=== PATIENT | male | born 1975 | race Caucasian/White ===

== ENCOUNTER 2017-09-14 06:32 | Observation (INO) | payer OTHER, SELFPAY ==
[2017-09-14] VITALS (12 sets, daily range): BP systolic 127–178; BP diastolic 70–102; PULSE 68–96; RESP 13–16; TEMP 36.4–36.6; O2SAT 96–98; BMI 36.8; BMI 36.4
--- NOTE | 2017-09-14 06:39 | EKG12_ITS ---
Test Reason : CHEST PAIN Blood Pressure : / mmHG Vent. Rate : 065 BPM Atrial Rate : 065 BPM P-R Int : 148 ms QRS Dur : 088 ms QT Int : 376 ms P-R-T Axes : 031 001 014 degrees QTc Int : 391 ms Normal sinus rhythm with sinus arrhythmia Normal ECG Confirmed by SHARRI TONY ([id number]), design editor THANH ORTIZ ([id number] on 09/18/2017 4:07:07 PM Referred By: JAYASHREE Confirmed By:SHARRI OTNY
--- NOTE | 2017-09-14 06:39 | RAD_ITS ---
STUDY: X-RAY CHEST REASON FOR EXAM: Male, 42 years old. Left-sided chest pain. TECHNIQUE: Single AP portable view of the chest. COMPARISON: August 22, 2013. FINDINGS: Cardiac monitoring leads are present. The lungs are clear and expanded. There is no demonstrated pleural abnormality. Normal size heart. Normal mediastinum and juaquin. There is prominence of the pulmonary hilar arteries without peripheral pulmonary vascular congestion. Normal visualized aortic arch and descending thoracic aorta. Normal visualized thoracic spine. Normal visualized ribs, clavicles, and shoulders. There is no demonstrated abnormality of the visualized soft tissue structures of the upper abdomen. RAD/Chest 1 View (Portable) IMPRESSION: No radiographic evidence of acute cardiopulmonary disease. Electronically Signed: Jolanta Mac MD at 7:22 EDT , Service support ,
--- NOTE | 2017-09-14 06:42 | ED.DCSUM_ITS ---
- ER Visit Summary Date of Service: 09/14/17 Chief Complaint: Chest pain History of Present Illness: The patient is a 42 M who presents with chest pain. He has had intermittent chest pains for the past 1 week. He describes a tightness in the left side of his chest and parasternal area. It does not radiate. Is worse with bending over. When he gets these pains in gets short of breath. At times he has felt lightheaded and near syncopal. It got worse at 1 AM today. He has stress test many years ago but nothing recently. He denies hypertension, diabetes or high cholesterol. He is a non-smoker. Physical Examination: Vital signs reviewed. HEENT exam unremarkable. Heart is regular rate and rhythm without murmurs. Lungs are clear to auscultation. Abdomen is soft and nontender. Extremities reveal no edema. Peripheral pulses are equal. Skin exam normal. Neurologic exam normal. Test Results: [] Emergency Department Course and Treatment: [] Treatment Plan: [] Disposition: [] Impression: [] This note was generated with [employer] dictation software. It may contain incorrect words, spelling, and punctuation that were not noted in review of the chart prior to signing ED Disposition - Plan for ED Patient: Chief Complaint: Chest Pain Referrals: NOT,DEFINED [Primary Care Provider] -
[2017-09-14] MEDS: Aspirin 81 MG TAB.CHEW 324 MG PO (06:47)
[2017-09-14 06:52] LABS: Absolute Lymphocyte Count 2.93 X10^3/ul (0.83-4.51); Absolute Neutrophil Count 3.5 X10^3/uL (2.0-7.7); Basophil# 0.07 X10^3/uL; Basophil% 0.9 % (0-1); Eosinophils% 2.6 % (0-5); Hematocrit 45.8 % (40-54); Hemoglobin 16.5 g/dl (13.0-16.5); Lymphocyte # 2.93 X10^3/ul (4.0); Lymphocyte % 38.5 % (19-41); Mean Corpuscular Hgb 30.8 pg (27.0-32.0); Mean Corpuscular Volume 85.6 fL (80-94); Mean Platelet Vol. 8.5 fl (6.2-12.0); Monocyte# 0.84 X10^3/uL; Neutrophil # 3.49 X10^3/uL (2.7-7.7); Neutrophil % 45.9 % (47-70); Platelet Count 276 K/mm3 (150-450); RBC Distribution Width CV 13.7 % (11.6-14.6); RBC Distribution Width SD 42.4 fl (35.1-43.9); Red Blood Count 5.35 M/mm3 (4.6-6.2); White Blood Count 7.6 K/mm3 (4.4-11.0)
[2017-09-14 06:56] LABS: POSITIVE COUNT NO; POSITIVE DIFFERENTIAL NO; POSITIVE MORPHOLOGY NO
[2017-09-14 07:04] LABS: Anion Gap 6 (5-15); BUN 20 mg/dL (7-18); BUN/Creat Ratio 13.6 RATIO (10-20); Calcium,Total 8.5 mg/dL (8.5-10.1); Chloride 106 mmol/L (98-107); Creatinine, Serum 1.47 mg/dL (0.70-1.30); EST Glomerular Filtration Rate 55 mL/min (>60); Est Glom Filt Rate - Afr Amer 67 mL/min (>60); Estimated Creatinine Clearance 62.69 ml/min; Glucose 86 mg/dL (74-106); Potassium 3.7 mmol/L (3.5-5.1); Sodium Level 140 mmol/L (136-145)
--- NOTE | 2017-09-14 07:33 | ED.VISSUMM ---
- ER Visit Summary Date of Service: 09/14/17 Chief Complaint: [Addendum to initial dictation by Dr. Siegel] History of Present Illness: The patient is a 42 M [] presented with chest pain. Patient care turned over to me at 7 AM awaiting lab results and final disposition. It was felt by Dr. Siegel that patient would require admission to further evaluate the etiology of his chest pain. Patient continues to complain of some tightness in his left chest and I did order a nitro series for the patient. Case will be discussed with hospitalist evaluate patient for admission. Physical Examination: [] Test Results: [CBC with differential was normal. Chemistries were normal. Troponin was less than 0.02. BUN was 20 and creatinine was 1.47. Chest x-ray showed nothing acute.] Emergency Department Course and Treatment: [] Treatment Plan: [Admit] Disposition: [Admit] Impression: [Chest pain-rule out acute coronary syndrome] This note was generated with [employer] dictation software. It may contain incorrect words, spelling, and punctuation that were not noted in review of the chart prior to signing ED Disposition - Plan for ED Patient: Chief Complaint: Chest Pain Referrals: NOT,DEFINED [NON-STAFF] -
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
[2017-09-14] MEDS: Nitroglycerin 0.1 MG Patch TRANSDERM. (08:04)
[2017-09-14 08:28] LABS: Magnesium 2.3 mg/dL (1.6-2.6)
--- NOTE | 2017-09-14 09:30 | NURSING ---
patient off unit to stress testing at this time
--- NOTE | 2017-09-14 12:36 | STRESSREP ---
Stress Test Report Date: 06/09/2017 Procedure: Exercise tolerance test/imaging study Indications: Chest pain Consent: Per the patient Procedure: The patient exercised on a Jose protocol for 9 minutes completing Stage III achieving a peak heart rate of 179 bpm (101 % predicted maximal heart rate) with a peak blood pressure 158/60 mmHg and a peak MET capacity of 10 METs. The baseline ECG demonstrated normal sinus rhythm. The peak exercise ECG demonstrated no obvious ECG changes. There was a rare PVC, isolated ventricular couplet, and isolated ventricular triplet, during exercise and a rare PAC/PVC during recovery. The functional capacity was considered good. There was no complaint of chest discomfort during exercise or recovery. The examination was discontinued secondary to dyspnea. Impression: 1. Technically adequate (percent predicted maximal heart rate greater than 85%) exercise tolerance test 2. Peak exercise ECG with no obvious ECG changes 3. There was a rare PVC, isolated ventricular couplet, isolated ventricular triplet, during exercise and a rare PAC/PVC during recovery. 4. Nuclear images pending Myocardial perfusion imaging study: Technique: The patient was injected with 14.3 mCi of technetium 99m Cardiolite and subsequently rest SPECT Cardiolite nuclear imaging was obtained in the horizontal long, vertical long, and short axis views. The patient exercised on a Jose protocol for 9 minutes completing Stage III achieving a peak heart rate of 179 bpm (101 % predicted maximal heart rate) with a peak blood pressure 158/60 mmHg and a peak MET capacity of METs. The patient was injected with 44.6 mCi of technetium 99m Cardiolite and subsequently stress SPECT Cardiolite nuclear imaging was obtained in the horizontal long, vertical long, and short axis views. A gated Cardiolite study at peak stress was obtained. Interpretation: Rest and stress SPECT Cardiolite nuclear imaging status post realignment, normalization, and attenuation correction, demonstrates the appearance of relative uniform tracer uptake and myocardial perfusion appearing within normal limits. There is end systolic thickening and brightening. The gated Cardiolite study demonstrates myocardial thickening and inward wall motion. The reported LVEF is 80 %. Impression: 1. Rest and stress SPECT Cardiolite nuclear imaging demonstrate relative uniform tracer uptake and myocardial perfusion appearing within normal limits. 2. The gated Cardiolite study reports an LVEF of 80 %. This note was generated with [employer] software. It may contain incorrect words, spelling, and punctuation that were not noted in checking the note before signing.
--- NOTE | 2017-09-14 12:43 | STRESSREP_ITS ---
Stress Test Report Date: 06/09/2017 Procedure: Exercise tolerance test/imaging study Indications: Chest pain Consent: Per the patient Procedure: The patient exercised on a Jose protocol for 9 minutes completing Stage III achieving a peak heart rate of 179 bpm (101 % predicted maximal heart rate) with a peak blood pressure 158/60 mmHg and a peak MET capacity of 10 METs. The baseline ECG demonstrated normal sinus rhythm. The peak exercise ECG demonstrated no obvious ECG changes. There was a rare PVC, isolated ventricular couplet, and isolated ventricular triplet, during exercise and a rare PAC/PVC during recovery. The functional capacity was considered good. There was no complaint of chest discomfort during exercise or recovery. The examination was discontinued secondary to dyspnea. Impression: 1. Technically adequate (percent predicted maximal heart rate greater than 85% ) exercise tolerance test 2. Peak exercise ECG with no obvious ECG changes 3. There was a rare PVC, isolated ventricular couplet, isolated ventricular triplet, during exercise and a rare PAC/PVC during recovery. 4. Nuclear images pending Myocardial perfusion imaging study: Technique: The patient was injected with 14.3 mCi of technetium 99m Cardiolite and subsequently rest SPECT Cardiolite nuclear imaging was obtained in the horizontal long, vertical long, and short axis views. The patient exercised on a Jose protocol for 9 minutes completing Stage III achieving a peak heart rate of 179 bpm (101 % predicted maximal heart rate) with a peak blood pressure 158/ 60 mmHg and a peak MET capacity of METs. The patient was injected with 44.6 mCi of technetium 99m Cardiolite and subsequently stress SPECT Cardiolite nuclear imaging was obtained in the horizontal long, vertical long, and short axis views. A gated Cardiolite study at peak stress was obtained. Interpretation: Rest and stress SPECT Cardiolite nuclear imaging status post realignment, normalization, and attenuation correction, demonstrates the appearance of relative uniform tracer uptake and myocardial perfusion appearing within normal limits. There is end systolic thickening and brightening. The gated Cardiolite study demonstrates myocardial thickening and inward wall motion. The reported LVEF is 80 %. Impression: 1. Rest and stress SPECT Cardiolite nuclear imaging demonstrate relative uniform tracer uptake and myocardial perfusion appearing within normal limits. 2. The gated Cardiolite study reports an LVEF of 80 %. This note was generated with [employer] software. It may contain incorrect words, spelling, and punctuation that were not noted in checking the note before signing.
--- NOTE | 2017-09-14 12:48 | PCM.DC ---
- Discharge Diagnoses Current Active Problems: Current Active and Chronic Problems Chest pain (Acute) Reason(s) for Visit for Discharge Instructions: Chest pain. You will use the following diet at home:: Regular Your food should be the consistency of: Regular Your liquids should be the consistency of: Regular/Thin Discharge Activity: Return to Normal Activity Additional Instructions: Continue to exercise and follow a heart healthy diet. Allergies/Adverse Reactions: Allergies No Known Allergies Allergy (Verified 09/14/17 06:32) Medications to take at Discharge NK [NK] 09/14/17 Primary Care Physician: NOT,DEFINED [NON-STAFF] - Please follow up with your Primary Care Physician in: within 2 weeks Proposed Discharge Date: 09/14/17
--- NOTE | 2017-09-14 12:51 | PCM.DC.SUM ---
Discharge Date and Diagnosis Date of Admission: 09/14/17 Date of Discharge: 09/14/17 - Primary Discharge Diagnosis Active and Suspected Problems Chest pain (Acute) Hospital Course and Treatment Imaging Results: 09/14/17 05:55 Nuclear Stress Test - Chemical [NM] AM (NON MEDS) 09/15/17 05:55 Nuclear Stress Test - Chemical [NM] AM (NON MEDS) Clinical Impression(s) from Imaging Studies Chest X-Ray 09/14/17 06:39 IMPRESSION: No radiographic evidence of acute cardiopulmonary disease. Electronically Signed: Jolanta Mac MD at 7:22 EDT , Service support , None Operations: None Procedures: None Summary of Care Provided: 42 year old M with no significant past medical history who comes in with complaints of chest pain ongoing for about a week. Pain is left-sided, sharp in origin, associated with some light-headedness. It wWas associated with some palpitations but no nausea and some diaphoresis. Vitals were stable in the ED except for an initial elevated blood pressure at that resolved on further monitoring. Patient's initial troponins were negative. He underwent further stress test and was negative. Vitals continue to be negative and patient was subsequently discharged to follow-up with his primary care doctor within 2 weeks. Discharge Diet: No Restrictions Discharge Activity: Return to Normal Activity Home Medications: Medications to take at Discharge NK [NK] 09/14/17 Primary Care Physician: NOT,DEFINED [NON-STAFF] - Please follow up with your Primary Care Physician in: within 2 weeks Disposition: Home Minutes spent on discharge:: 25 Patient Condition:: Stable Medical Necessity - Tobacco Use Smoking Status: Never smoker Meaningful Use Info Meaningful Use Diagnoses (Choose all that apply): None applicable Code Visit OBSV E&M: 34473 Observ/hosp same date L3
== END 2017-09-14 12:49 | disposition home or self-care (01) ==
LOC: ED 06:59 → PCU 07:53
PROVIDERS: Admitting Provider Internal Medicine; Emergency Provider Emergency Medicine; Visit Provider Internal Medicine
DX: R07.89 Other chest pain (principal); R06.02 Shortness of breath; R42 Dizziness and giddiness
CPT/HCPCS: 71045; 78452; 80048; 83735; 84484; 85025; 93005; 93017; 99283; A9500; A4216

== ENCOUNTER → 2018-06-16 16:22 | Outpatient (CLI) | payer OTHER, SELFPAY ==
[2018-06-16 11:42] VITALS: BMI 37.5
== END ==
PROVIDERS: Visit Provider Nurse Practitioner Family
DX: J02.9 Acute pharyngitis, unspecified (principal)
CPT/HCPCS: 87070

== ENCOUNTER 2019-01-09 20:56 | Emergency (ER) | payer OTHER, SELFPAY ==
[2018-07-29 13:09] VITALS: BMI 37.5
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
[2019-01-09 21:35] LABS: Absolute Lymphocyte Count 2.27 X10^3/uL (0.83-4.51); Absolute Neutrophil Count 3.9 X10^3/uL (2.0-7.7); Basophil# 0.05 X10^3/uL; Basophil% 0.7 % (0-1); Eosinophil# 0.21 X10^3/uL; Eosinophils% 2.9 % (0-5); Hematocrit 42.9 % (40-54); Hemoglobin 15.2 g/dL (13.0-16.5); Lymphocyte # 2.27 X10^3/ul (4.0); Lymphocyte % 31.2 % (19-41); Mean Corp Hgb Conc 35.4 g/dL (32-36); Mean Corpuscular Hgb 30.8 pg (27.0-32.0); Mean Platelet Vol. 8.5 fl (6.2-12.0); Monocyte# 0.69 X10^3/uL; Monocyte% 9.5 % (0-10); NRBC Flagged by Analyzer 0 % (0-5); Neutrophil # 3.94 X10^3/uL (2.7-7.7); Neutrophil % 54.2 % (47-70); Platelet Count 255 K/mm3 (150-450); RBC Distribution Width CV 13.2 % (11.6-14.6); RBC Distribution Width SD 41.1 fl (35.1-43.9); Red Blood Count 4.93 M/mm3 (4.6-6.2); White Blood Count 7.3 K/mm3 (4.4-11.0)
[2019-01-09 21:48] LABS: Anion Gap 6 (5-15); BUN 19 mg/dL (7-18); BUN/Creat Ratio 14.3 RATIO (10-20); Calcium,Total 8.5 mg/dL (8.5-10.1); Chloride 110 mmol/L (98-107); Creatinine, Serum 1.33 mg/dL (0.70-1.30); EST Glomerular Filtration Rate 62 mL/min (>60); Est Glom Filt Rate - Afr Amer 75 mL/min (>60); Glucose 87 mg/dL (74-106); Potassium 3.6 mmol/L (3.5-5.1); Sodium Level 142 mmol/L (136-145)
[2019-01-09 21:48] LABS: Amphetamine Urine VISTA NEGATIVE (<1000 ng/mL); Barbiturate Urine VISTA NEGATIVE (< 200 ng/mL); Benzodiazepine Urine VISTA NEGATIVE (< 200 ng/mL); Cocaine Urine VISTA NEGATIVE (< 300 ng/mL); Ecstacy Urine VISTA NEGATIVE (< 500 ng/mL); Methadone Urine VISTA NEGATIVE (< 300 ng/mL); PCP Urine VISTA NEGATIVE (< 25 ng/mL); THC Urine VISTA NEGATIVE (< 50 ng/mL); Vista UDS pH Range 6
[2019-01-09 21:50] VITALS: BP 152/86; PULSE 76; PULSE 81; RESP 16; RESP 17; TEMP 36.8; O2SAT 100; O2SAT 98; BMI 37.2
--- NOTE | 2019-01-09 22:21 | ED.DEP ---
ED Disposition - Plan for ED Patient: Disposition: Home or Assisted Living Instructions: SKIN EXPOSURE, Chemical, Chemical Inhalation Referrals: Care Physician,No Primary [NON-STAFF] -
[2019-01-09 22:43] VITALS: BP 141/81; PULSE 71; RESP 16; O2SAT 99
== END 2019-01-09 22:44 | disposition home or self-care (01) ==
PROVIDERS: Emergency Provider Emergency Medicine; Family Provider Family Medicine; PCP Family Medicine
DX: Z77.098 Contact with and (suspected) exposure to other hazardous, chiefly nonmedicinal, chemicals (principal)
CPT/HCPCS: 80048; 80307; 85025; 99284; A4216

== ENCOUNTER 2019-12-25 20:42 | Emergency (ER) | payer OTHER, SELFPAY ==
[2019-11-11 13:34] VITALS: BMI 37.2
[2019-12-25 20:44] VITALS: BP 147/88; PULSE 79; RESP 18; TEMP 36.8; O2SAT 97; BMI 36.5
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
--- NOTE | 2019-12-25 23:03 | ED.DCSUM_ITS ---
History of Present Illness Chief Complaint: Lower Extremity Injury Informant: Patient Narrative: Patient is a 44-year-old previous healthy male who presents to the emergency department for right ankle pain. This started earlier today while he was at work. 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 He felt a burning sensation around the distal part of his Achilles tendon. Since running approximately 80 yards the pain has been getting more intense. He has not tried anything for this. He has not had this pain ever before. Denies twisting his ankle. No injury. He has been able to ambulate on it but has been taking very small steps due to the pain. No pain going up the leg into his calf. No history of blood clots. Very mild swelling on the medial aspect of the insertion site of Achilles tendon. He denies any systemic symptoms including any fever/chills. He has gotten mildly nauseous during the pain when he gets severe. He has twisted the ankle many times before in the past while playing basketball. Denies any loss of sensation in the foot. Past Medical History - Allergies and Home Meds Allergies/Adverse Reactions: Allergies No Known Allergies Allergy (Verified 12/25/19 20:48) Primary Care Physician: Natasha Wang MD [Primary Care Provider] - 3-5 Days if not improving Prior records reviewed: Yes Past Medical History: None Surgical History: total knee arthroplasty - left, - - wrist surgery Smoking Status: Never smoker - Family History Maternal Family History: Reports: No pertinent history Paternal Family History: Reports: No pertinent history Review of Systems All systems negative except as indicated General: Denies: Chills, Fever Eyes: Denies: Visual changes - bilaterally ENT: Denies: Rhinorrhea Cardiovascular: Denies: Chest pain Respiratory: Denies: Dyspnea, Cough Gastrointestinal: Reports: Nausea. Denies: Abdominal pain, Vomiting Musculoskeletal: Reports: Swelling, Extremity Pain. Denies: Myalgias, Neck pain, Back pain Skin: Denies: Rash, Wounds Neurological: Denies: Headache, Weakness, Parasthesia, Numbness Hematologic: Denies: Easy bruising, Easy bleeding Physical Exam Vital Signs/Narrative: Vital Signs Temp Pulse Resp BP Pulse Ox 12/25/19 20:44 98.2 F 79 18 147/88 H 97 Inital Vital Signs reviewed: Yes General: Well nourished Head: Normocephalic, Atraumatic Eyes: Perrl, EOMI ENT: Moist mucous membranes, No rhinorrhea Neck: Supple Cardiovascular: Regular rate Respiratory: No distress, Chest nontender. Negative for: Retractions Abdomen: Nondistended Back: Nontender Extremities: No edema, Tenderness - Patient has tenderness over the medial aspect of the Achilles tendon. Very mild swelling present. 2+ dorsal pedis pulse. Neurovascular intact. Has full range of motion of the ankle but with pain. Skin: Normal color, No rash Neurological: Alert, Oriented x3, Cranial nerves II-XII grossly intact, Normal Strength, Normal Sensation Psychological: Normal affect, Normal Mood Diagnostic/Tx/Re-eval - Medical Decision Making Patient presents to the emerge department for right ankle pain while running. He denies any specific injury. X-rays obtained which showed previous avulsion fractures of the lateral and medial malleolus. No acute fractures present. He could potentially have a partially torn Achilles tendon. He has good tone present currently. Put him in a walking boot and give crutches here as he is having a lot of pain with ambulating. He is to follow-up with his PCP. Warning signs and symptoms for which to return to the emergency department including significant swelling, developing any overlying skin changes including warmth, erythema or reviewed. Can treat his symptoms at home with Tylenol and ibuprofen. He is to use RICE as well. He understands and is agreeable with this plan. ED Disposition - Plan for ED Patient: Disposition: Home or Assisted Living Diagnosis: Ankle pain, right, Right ankle strain Instructions: ED Sprain Ankle Referrals: Natasha Wang, [Primary Care Provider] - 3-5 Days if not improving
[2019-12-25] MEDS: Ketorolac 30 MG/ML Syringe IM (23:21)
== END 2019-12-25 23:37 | disposition home or self-care (01) ==
PROVIDERS: Emergency Provider Emergency Medicine
DX: S93.401A Sprain of unspecified ligament of right ankle, initial encounter (principal); Y93.02 Activity, running; X50.9XXA Other and unspecified overexertion or strenuous movements or postures, initial encounter; Y92.89 Other specified places as the place of occurrence of the external cause; Y99.0 Civilian activity done for income or pay
CPT/HCPCS: 73610; 73630; 96372; 99284

== ENCOUNTER → 2019-12-27 07:38 | Outpatient (CLI) | payer OTHER, SELFPAY ==
[2019-12-26 11:52] VITALS: BMI 36.5
--- NOTE | 2019-12-27 07:45 | MRI_ITS ---
STUDY: MRI RIGHT ANKLE WITHOUT CONTRAST REASON FOR EXAM: Male, 44 years old. RT ANKLE ACHILLES TEAR -- injured rt ankle 12/25/19, pain/ lump posterior ankle TECHNIQUE: Standardized fat and water weighted pulse sequences were obtained in all 3 orthogonal planes. COMPARISON: None. FINDINGS: Mild subcutaneous edema is seen on the lateral side of the lower leg and around the ankle. No visualized marrow edema or osteochondral defect. Mild subchondral cystic changes are present at the undersurface of the medial malleolus. Normal lateral malleolus. A small joint effusion is present. Normal posterior tibialis tendon. Normal flexor digitorum longus tendon. Normal flexor hallucis longus tendon. Normal peroneus longus and brevis tendons. Normal tibialis anterior tendon. Normal extensor hallucis longus tendon. Normal extensor digitorum longus tendons. Moderate bulbous thickening of the mid one third aspect of the Achilles tendon is present with intrasubstance 1.5 cm split tear in the central to posterior fibers. The peripheral fibers of the Achilles tendon are normal. Normal Achilles teno-osseous insertion. Normal plantar fascia. Normal plantar calcaneal tubercles. Normal intrinsic muscles of the rearfoot. Normal distal tibiofibular syndesmotic ligamentous complex. The anterior talofibular ligament is completely torn. Normal subtalar ligaments and sinus tarsi. Normal deltoid ligamentous complexes. Normal plantar calcaneonavicular (spring) ligament. Normal tibiotalar articulation. Normal talar dome. Normal subtalar articulations. Normal talonavicular articulation. Normal calcaneocuboid articulation. Normal navicular-cuneiform articulations. MRI/Lower Ext Joint Only (Routine) IMPRESSION: 1. Moderate bulbous thickening of the mid one third aspect of the Achilles tendon is present with intrasubstance 1.5 cm split tear in the central to posterior fibers. The peripheral fibers of the Achilles tendon are normal. 2. Complete tear of the anterior talofibular ligament 3. Small ankle joint effusion 4. Mild subchondral cystic changes of the medial malleolus Electronically Signed: Matthias Ohara MD at 18:32 EDT , Service support ,
== END ==
PROVIDERS: Referring Provider Family Medicine; Visit Provider Family Medicine
DX: S86.009A Unspecified injury of unspecified Achilles tendon, initial encounter (principal)
CPT/HCPCS: 73721

== ENCOUNTER 2020-09-29 16:00 | Outpatient (RCR) | payer OTHER, SELFPAY ==
[2019-12-26 11:52] VITALS: BMI 36.5
--- NOTE | 2020-03-16 10:19 | HP.PTEVAL_ITS ---
Patient's Visit Information HARPAL CHERY is a 45 year old M referred to Physical Therapy by Dr. Olivia Valencia MD with a diagnosis of s/p R achilles debridement and repair 01/29. Date of Evaluation: 03/16/20 Physical Therapist: Uriel Coyne, DPT, OCS, CSCS - Visit Plan Frequency: 2x /Week Duration: 4-6 Weeks Plan: 2x/week for 6 weeks for. 1. R ankle desensitization STM, PROM and AROM progression back to normal ROM. 2. stretch gently autumn sR. Gait progression out of boot(Pt is WBAT R out of boot, ensure no increase swelling or pain and slow progression). 3. proprioceptive and strength ex to toelrance R edith. 4. Please have patient spend time with overall core and LE strengthening in gym to condition for eventual RTW(Legs, UE, posture, funcional) and teach for I when ready before or after session. 5. ice - Subjective Split achilles 12/24 running at work. 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 Diagnose with split tear in achilles. He had it debrided and tendon repair from flexor hallucis longus. Surgery was Jan 29. Been in boot off work ever since. Was NWB crutches 6 weeks. Now WBAT in boot out and about and can start go without it. Has done a little at home and it gets sore.. Pain is 1-2/10 at worst lately, sometime sharper for short duration. Sleep is OK out of boot. no pain meds. Basic ADLs are OK. No return to wrok date other than it will be a while. No light duty right now. Hobbies include kids and hunting. Wants to walk normal. Kids are 15,6 and 6 months. 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 is doing most of it. Not driving yet adn will not for another month. - Pain R Achilles Pain Intensity (Out of 10): 0 Pain Intensity Range: 0, 1, 2 - Objective Walks with boot I , trasnfers I. Dons and doffs boot I. R ankle AROM -2 DF vs 4 on L, PF 35 R and 55 L. inversion 32 L and 20 R and eversion 12 R and 20 L. Sensitie to touch over achilles R mildly today dressed in compression. metatarsals moving well B. Big toe flexion challenging as expected on R, ext strength B big toes is 4+. Ankle strength eversion 4 R and 4+L, inversion 4 R and 4+. PF R not tested and L 5/5. DF 4+ B. Walks without boot avoiding pushoff R and some minor antalgia, avodiance of DF on R side. Other LE joints 4+/5 and WNL ROM, L knee flexion ROM normally limited. SLS R poor vs L and slightly painful. (3 seconds vs 10+) - Goals Goal 1:: Normal and symmetrical ankle ROM to make walking smooth adn painfree. Goal Time Frame: 4-6 Weeks Goal 2:: Walk without boot without gait deviations in the community Goal Time Frame: 4-6 Weeks Goal 3:: normal steps without rail reciprocally Goal Time Frame: 4-6 Weeks Goal 4:: I approp HEP for progression to wor conditioning Goal Time Frame: 4-6 Weeks Goal 5:: Plan for patient to return to work when appropriate Goal Time Frame: 4-6 Weeks - Rehabilitation Potential Physical Therapy Diagnosis: s/p R achilles debridement and repair 01/29 Rehabilitation Potential: Good - Anticipated Interventions Patient/Client Instruction: Educate patient on: Condition, Plan of Care For the Purpose of:: To decrease pain, To increase ROM, To improve muscle performance and motor function, To increase tolerance to activity/condition/position, To improve ability of physical actions for home/community/work/leisure, To improve gait and locomotor functions Therapeutic Exercise to Include: Strength training, Balance training, Postural training, Flexibilty training, Neuromotor development, Passive ROM, Active ROM, Dynamic Lumbar Stabilization For the Purpose of:: To decrease pain, To increase ROM, To improve muscle performance and motor function, To increase tolerance to activity/condition/position, To improve ability of physical actions for home/community/work/leisure, To improve gait and locomotor functions Functional Training to Include: Gait training For the Purpose of:: To improve gait and locomotor functions Manual Therapy Techniques to Include: Mobilization, Soft tissue mobilization Comment: desensitization For the Purpose of:: To decrease pain, To increase ROM, To improve muscle perf ormance and motor function Cryotherapy (ice pack, ice massage): Yes For the Purpose of:: To decrease swelling/inflammation Thank you for the opportunity to evaluate your patient. For Medicare and Medicare HMO plans, please review the plan of care and approve it. It will need to be FAXED BACK to us at [phone] for Medicare purposes. For Medicare only, by signing this I certify the plan of care. Please let me know if there are questions or concerns regarding this plan of care. Physician Signature: Date:
--- NOTE | 2020-04-26 09:54 | HP.PTREVAL_ITS ---
Dr. Olivia Valencia MD, It has been my pleasure to treat HARPAL CHERY over the last 10 visits for s/p R achilles debridement and repair 01/29. Please see the progress note below for an update on the physical therapy plan of care! Subjective: Had to cancel last week due to possible covid exposure. Clear now from the health department. Missed doctor appointment but will reschedule it. No pain. sleeping well. Activities at home are pretty normal. 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 Objective/Function: 5 degrees DF R and 58 PF, Eversiona dn inversion wFL. Strenth improving to 4+ inv/ev adn 5 DF, PF still weak vs L side at 4, tian to heel raise but it is a chore on just the Right LE. Started sidestepping adn carioce today, no jogging yet. Walks normal and steps mostly normal outsid eof weakness accepting weight on R PF when descending. Reciprocal adn without rail is easy. Overall doing excellent, wekaness in PF persists. Needs to be able to run for work in the chance someone flees and is not ready for that yet but otherwise doing well. Plan Plan: Pt to schedule with doctor since he missed that appointment. He can likely continue strengthening on his own but may need PT oversight to progress back to runnign adn functional movments. Will revisit this after doctor visit with recommendation of 2x/week for 3-4 weeks for progression of function back to work when allowed by doctor. Goals Goal 1:: Normal and symmetrical ankle ROM to make walking smooth adn painfree. Goal Time Frame: 4-6 Weeks Goal Progress: Goal Met Goal 2:: Walk without boot without gait deviations in the community Goal Time Frame: 4-6 Weeks Goal Progress: Goal Met Goal 3:: normal steps without rail reciprocally Goal Time Frame: 4-6 Weeks Goal Progress: Goal Met Goal 4:: I approp HEP for progression to wor conditioning Goal Time Frame: 4-6 Weeks Goal Progress: met outside jog. Goal 5:: Plan for patient to return to work when appropriate Goal Time Frame: 4-6 Weeks Goal Progress: Progressing Goal 6:: Jog 5 minutes and start to sprint on TM without gait deviations Goal Time Frame: 2-4 Weeks Goal Progress: NEW GOAL Anticipated Interventions Patient/Client Instruction: Educate patient on: Condition, Plan of Care For the Purpose of:: To decrease pain, To increase ROM, To improve muscle performance and motor function, To increase tolerance to activity/condition/position, To improve ability of physical actions for home/community/work/leisure, To improve gait and locomotor functions Therapeutic Exercise to Include: Strength training, Balance training, Postural training, Flexibilty training, Neuromotor development, Passive ROM, Active ROM, Dynamic Lumbar Stabilization For the Purpose of:: To decrease pain, To increase ROM, To improve muscle performance and motor function, To increase tolerance to activity/condition/position, To improve ability of physical actions for home/community/work/leisure, To improve gait and locomotor functions Functional Training to Include: Gait training For the Purpose of:: To improve gait and locomotor functions Manual Therapy Techniques to Include: Mobilization, Soft tissue mobilization Comment: desensitization For the Purpose of:: To decrease pain, To increase ROM, To improve muscle performance and motor function Cryotherapy (ice pack, ice massage): Yes For the Purpose of:: To decrease swelling/inflammation Please do not hesitate to contact me at [phone] by phone or if you have questions or concerns regarding this new plan of care! Sincerely, Uriel Coyne, DPT, OCS, CSCS
--- NOTE | 2020-07-15 12:26 | HP.PTREVAL_ITS ---
Dr. Olivia Valencia MD, It has been my pleasure to treat HARPAL CHERY over the last 21 visits for s/p R achilles debridement and repair 01/29. Please see the progress note below for an update on the physical therapy plan of care! Subjective: Doctor wanted another plan of care for PT due tot he fact that patient will may have to run in the course of duty once he returns to full duty. No pain or problems with current achilles. Still very tired with CV since having covid but no pain. Objective/Function: Some cheloid on medial incision and thickness throughout mid substance of Achilles palpable. 8 degrees DF R, 55 PF and symmetrical with L. 5/5 strength R PF but still weaker than L in functional stance. other ankle motions 5/5, walks normal, steps normal. Jogging without problem at 4.5 mph or comensation, slight limp up at 6.0 mph but no pain. Pt would benefit from further therapy to progress in a controlled environment back to explosive movements which may need to be done in the course of his full duty job once released. Plan Plan: 2x/week for 4 weeks to progress plyo and work on incsiion with manual. Goals appropriate adn fair prognosis. Goals Goal 1:: Normal and symmetrical ankle ROM to make walking smooth adn painfree. Goal Time Frame: 4-6 Weeks Goal Progress: Goal Met Goal 2:: Walk without boot without gait deviations in the community Goal Time Frame: 4-6 Weeks Goal Progress: Goal Met Goal 3:: normal steps without rail reciprocally Goal Time Frame: 4-6 Weeks Goal Progress: Goal Met Goal 4:: I approp HEP for progression to wor conditioning Goal Time Frame: 4-6 Weeks Goal Progress: met outside jog. Goal 5:: Plan for patient to return to work when appropriate Goal Time Frame: 2-4 Weeks Goal Progress: still needs full duty Goal 6:: Jog 5 minutes and start to sprint on TM without gait deviations Goal Time Frame: 2-4 Weeks Goal Progress: approp sprint. Anticipated Interventions Patient/Client Instruction: Educate patient on: Condition, Plan of Care For the Purpose of:: To decrease pain, To increase ROM, To improve muscle performance and motor function, To increase tolerance to activity/condition/position, To improve ability of physical actions for home/community/work/leisure, To improve gait and locomotor functions Therapeutic Exercise to Include: Strength training, Balance training, Postural t raining, Flexibilty training, Neuromotor development, Passive ROM, Active ROM, Dynamic Lumbar Stabilization For the Purpose of:: To decrease pain, To increase ROM, To improve muscle performance and motor function, To increase tolerance to activity/condition/position, To improve ability of physical actions for home/community/work/leisure, To improve gait and locomotor functions Functional Training to Include: Gait training For the Purpose of:: To improve gait and locomotor functions Manual Therapy Techniques to Include: Mobilization, Soft tissue mobilization Comment: desensitization For the Purpose of:: To decrease pain, To increase ROM, To improve muscle performance and motor function Cryotherapy (ice pack, ice massage): Yes For the Purpose of:: To decrease swelling/inflammation Please do not hesitate to contact me at [phone] by phone or if you have questions or concerns regarding this new plan of care! Sincerely, Uriel Coyne, DPT, OCS, CSCS
--- NOTE | 2020-09-29 16:37 | HP.PTDCSUM ---
It has been my pleasure to treat HARPAL CHERY referred by Dr. Olivia Valencia MD, with the diagnosis of s/p R achilles debridement and repair 01/29 for a total of 35 visit(s). Discharge Date: 09/29/20 Please see the following information for a summary of their discharge status. Subjective: No pain and doing well. Mad that his knee and hip hurt throughout the therapy as it may have held him back a little but achilles feels as good as ever. R Achilles Pain Intensity (Out of 10): 0 R hip Pain Intensity (Out of 10): 0 % Improvement: 90 Objective/Function: Full aROM R achilles to 10 degrees of DF and full inv/ev PF vs L. 5/5 strength R ankle motiions but still slightly weak with body weight vs L. Running without compensation or deficits adn doing very well. ready for d/c Goal 1:: Normal and symmetrical ankle ROM to make walking smooth adn painfree. Goal Progress: Goal Met Goal 2:: Walk without boot without gait deviations in the community Goal Progress: Goal Met Goal 3:: normal steps without rail reciprocally Goal Progress: Goal Met Goal 4:: I approp HEP for progression to wor conditioning Goal Progress: Goal Met Goal 5:: Plan for patient to return to work when appropriate Goal Progress: Goal Met, pending doctor Goal 6:: Jog 5 minutes and start to sprint on TM without gait deviations Goal Progress: 8.5 mph met Plan: d/c, pt to doctor to burt for release and he feels ready to go back to work. If there are questions or concerns regarding this patient's physical therapy, please feel free to call me at [phone]. Thank you for the referral of this patient. Sincerely, Uriel Coyne, DPT, OCS, CSCS
== END 2020-09-29 19:00 | disposition home or self-care (01) ==
LOC: PT 16:00
PROVIDERS: Referring Provider Orthopaedic Surgery; Visit Provider Orthopaedic Surgery
DX: S86.001D Unspecified injury of right Achilles tendon, subsequent encounter (principal)
CPT/HCPCS: 97014; 97110; 97140; 97161; 97530; G0283

== ENCOUNTER 2022-04-20 19:56 | Emergency (ER) | payer OTHER, SELFPAY ==
[2022-04-20 19:57] VITALS: BP 141/90; PULSE 101; RESP 16; TEMP 36.4; O2SAT 97; BMI 37.8
--- NOTE | 2022-04-20 20:04 | ED.RN ---
Corporate care notified.
--- NOTE | 2022-04-20 21:41 | ED.VIS.LOWEX ---
HPI History of Present Illness HPI Narrative: Presents with right knee injury that occurred today while he was at work. Patient states he twisted his knee trying to get out of his car. Patient states the pain was sharp. Patient states it is worse with ambulation. Patient states that later in the day he felt some popping in his knee. Patient denies any paresthesias or weakness. Patient denies any radiation of the pain. Patient states nothing makes the pain better. Patient denies any other injuries. Chief Complaint: Lower Extremity Injury Informant: patient Occured/Mechanism Comment: Twisted knee while getting out of a vehicle Onset/Context/Timing Onset: Today Context: Sudden Onset Timing: Continuous Quality of Pain: Sharp Location: Right knee Worsened by: Ambulation Relieved by: Nothing Associated Symptoms Associated Symptoms: Negative for Parasthesia, Weakness or Loss of Funtion [facility] Medical History (Updated 04/20/22 @ 21:[address] Uriel Rachel DO) Hypertension Migraines Home Medications naproxen 500 mg tablet 500 mg PO BID PRN #20 tabs 04/20/22 [Rx Last Taken Unknown] sumatriptan succinate 50 mg tablet 50 mg PO PRN PRN Migraine Headache 04/20/22 [History Last Taken Unknown] Allergy/AdvReac Type Severity Reaction Status Date / Time No Known Allergies Allergy Verified 04/20/22 19:57 Surgical History History of eyelid surgery History of knee surgery Status post wrist surgery Social History Smoking Status: Never smoker alcohol intake: never substance use type: does not use ROS ROS ED Constitutional Constitutional ED: Denies chills or fever(s) Eyes Eyes: Denies blurry vision or change in vision ENT ENT ED: Denies rhinorrhea or sore throat Cardiovascular Cardiovascular: Denies chest pain or palpitations Respiratory/Chest Respiratory/Chest: Denies cough or dyspnea Gastrointestinal Gastrointestinal: Denies nausea or vomiting Genitourinary Genitourinary ED: Denies dysuria or hematuria Musculoskeletal Musculoskeletal: Denies back pain or neck pain Integumentary Denies abscess or rash Neurologic Neurologic: Denies headache(s) or weakness Allergic/Immunologic Allergic/Immunologic ED: Denies mouth swelling or urticaria EXAM Physical Exam Const Vital Signs: 04/20/22 19:57 Temperature 97.5 F L Temperature Source Temporal Pulse Rate 101 H Respiratory Rate 16 Blood Pressure 141/90 H Blood Pressure Mean 107 Pulse Ox 97 Oxygen Delivery Method Room Air Positive well nourished and well developed General Appearance ED: well developed and NAD HEENT Reports moist mucous membranes normocephalic Neck full ROM Extremity Extremity Narrative: There is swelling the medial aspect of the little right knee along the joint line. There is no edema or ecchymosis. There is no bony crepitance or step-off. There is no effusion. Range of motion was limited in flexion of the right knee secondary to pain. There is pain with Cecilia testing. There is no laxity with varus or valgus stress testing. There is no laxity with Phan's testing. Pedal pulses are equal bilaterally. Sensation was intact to light touch bilaterally in the lower extremities. Strength is 5/5 bilaterally in the lower extremities. Neuro oriented x3, CN's II-XII intact bilaterally, moves all extremities and no sensory deficits noted Sensorium / Orientation: alert Motor Exam: strength 5/5 throughout MDM MDM MDM Narrative Medical decision making narrative: X-rays of the right knee were obtained. There are 4 views. On my interpretation, there is no acute fracture or dislocation. There is no soft tissue swelling. There is no joint effusion noted. Radiologist also interpreted the x-rays and agrees. Patient was given a dose of Naprosyn here. Patient was given a prescription for Naprosyn. Patient was instructed to ice and elevate the right knee. Patient was given restrictions for work. Patient was instructed to follow-up with his primary care physician in 5 to 7 days. Patient was also given a referral for orthopedics. Patient was also instructed to follow-up with the [facility] if his primary care physician does not accept Workmen's Comp. Patient understood and was agreeable with the plan. All questions were answered. Radiography Diagnostic Testing: Clinical Impression(s) from Imaging Studies Knee X-Ray 04/20/22 21:47 IMPRESSION: No evidence of fracture. Electronically Signed: Emily Pierre MD at 22:21 EST Reading Location ID and State: [facility] / [place] Tel , Service support , Discharge Plan Triage Chief Complaint: Lower Extremity Injury ED Provider: Uriel Rachel Dx/Rx/DC Orders Clinical Impression: Right knee sprain Instructions: ED Knee Sprain Prescriptions: New naproxen 500 mg tablet 500 mg PO BID PRN Qty: 20 0RF No Action sumatriptan succinate 50 mg tablet 50 mg PO PRN PRN (Reason: Migraine Headache) Label Comments: Take 1 tablet by mouth asCneeded for migraine headache (see administration instructions). Stand Alone Forms: Work Status Form Primary Care Provider: Marlon Badillo Referrals: Marlon Badillo MD [Primary Care Provider] - 5-7 Days Jorge Green DO [Med Staff - Active Staff] - 3-5 Days Disposition Disposition: Home, Self Care
--- NOTE | 2022-04-20 21:47 | RAD_ITS ---
STUDY: X-RAY - RIGHT KNEE REASON FOR EXAM: Male, 47 years old. Injury/Pain TECHNIQUE: 4 view(s) of the knee. COMPARISON: X-rays right knee 07/31/2014. FINDINGS: BONES: No fracture demonstrated. Mild degenerative changes mainly at the patellofemoral and medial compartments. JOINTS: No dislocation. SOFT TISSUES: Unremarkable. RAD/Knee 4 or More Views IMPRESSION: No evidence of fracture. Electronically Signed: Emily Pierre MD at 22:21 EST ,
[2022-04-20] MEDS: Naproxen 250 MG Tablet 500 MG PO (22:35)
[2022-04-20 22:44] VITALS: RESP 18
== END 2022-04-20 23:06 | disposition home or self-care (01) ==
PROVIDERS: Emergency Provider Emergency Medicine; PCP Family Medicine; Visit Provider Emergency Medicine
DX: S83.91XA Sprain of unspecified site of right knee, initial encounter (principal); I10 Essential (primary) hypertension; X50.1XXA Overexertion from prolonged static or awkward postures, initial encounter; Y92.810 Car as the place of occurrence of the external cause
CPT/HCPCS: 73564; 99283

== ENCOUNTER 2022-10-13 09:00 | Outpatient (RCR) | payer OTHER, SELFPAY ==
--- NOTE | 2022-06-27 11:24 | HP.PTEVAL_ITS ---
Patient's Visit Information HARPAL CHERY is a 47 year old M referred to Physical Therapy by Dr. Timo Agudelo MD with a diagnosis of R knee s/p arthro medial meniscectomy 06/16/22. Date of Evaluation: 06/27/22 Physical Therapist: Uriel Coyne, JAYLAT, OCS, CSCS - Visit Plan Frequency: 3x /Week Duration: 2 Months Plan: 3x/week for 6-8 weeks for. 1. R knee ROM focus flexion. 2. 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 Work toward I gym program to tolerance. ice, vaso if needed. - Subjective Hurt R knee chasing someone at work who had a warrant and felt knee twist and hurt R knee. Limped that day. That was 04/20/22 and then went to ER that night and the next day to [facility]. Got MRi at [place] and torn meniscus and MCL sprain. Saw ortho at [facility]. Had meniscectomy on 06/16/21 1.5 weeks ago. Post op appt last week and doing OK. ROM looks good and still has a lot of pain and swelling which will happen for 4-6 months. On ibuprofen as needed. Precaution is to take it easy. Crutches for a couple days and now is OK. Sleep is interrupted at times and using ice alot at home and elevation. Given knee exercises of QS, HS, SLR. Basic ADLs are getting done but swells easy. 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 Enjoys outdoors stuff [place] - Pain R knee Pain Intensity (Out of 10): 2 Pain Intensity Range: 0, 5 Comment: medial - Objective Walks into therapy slowly and I without gait deviations today. Steps prefers using L but can do either with pain on R. Bed and chair trasnfers are I. R knee AROM 0-97 R knee and 0-105 L knee. max tightness B quad although hard to tell due to limited knee ROM B and we have to extend hip to get stretch in quad, HS max tight at -30 90/90 B. Incision are dry and helaed without signs of excessive redness or heat or swelling. sligth edema today and feels scarring over arthroscopic incisions. ankle and hip aROM WFL. sensation LE WNL to gross light touch. Strength andkles 5/5, hip abd and ext 4- and flexion R 3+ and L 4. knee strength R ext 3+ and flexion 4 and l 4+ ext and flexion. - Balance/Special Test Scores Functional Gait Assessment Score: 29 % Disability: 3.3400 Lower Extremity Functional Score: 26 - Goals Goal 1:: 0-120 aROM without pain R knee Goal Time Frame: 2-4 Weeks Goal 2:: sleep without interruption through the night. Goal Time Frame: 2-4 Weeks Goal 3:: patient 100% better outside of work Goal Time Frame: 2-4 Weeks Goal 4:: Plan to return to all work duties Goal Time Frame: 6-8 Weeks Goal 5:: I in appropriate strength and fitness ex for healthy RTW Goal Time Frame: 6-8 Weeks Goal 6:: 64/80 LEFS Goal Time Frame: 6-8 Weeks - Rehabilitation Potential Physical Therapy Diagnosis: R kne e meniscal tear s/p surgery stiffness and weakness and dysfunction. Rehabilitation Potential: Good - Anticipated Interventions Patient/Client Instruction: Educate patient on: Condition, Plan of Care For the Purpose of:: To decrease pain, To increase ROM, To improve muscle performance and motor function, To increase tolerance to activity/condition/position, To improve ability of physical actions for home/community/work/leisure Therapeutic Exercise to Include: Strength training, Flexibilty training, Gait and locomotor training, Passive ROM, Active ROM For the Purpose of:: To decrease pain, To increase ROM, To improve muscle performance and motor function, To increase tolerance to activity/condition/position, To improve ability of physical actions for home/community/work/leisure Manual Therapy Techniques to Include: Mobilization, Passive ROM, Soft tissue mobilization For the Purpose of:: To decrease pain, To increase ROM, To improve nutrient delivery to tissue, To improve muscle performance and motor function, To increase tolerance to activity/condition/position, To improve ability of physical actions for home/community/work/leisure TENS: Yes Cryotherapy (ice pack, ice massage): Yes Vasopneumatic device: Yes For the Purpose of:: To decrease pain, To increase ROM, To improve nutrient delivery to tissue Thank you for the opportunity to evaluate your patient. For Medicare and Medicare HMO plans, please review the plan of care and approve it. It will need to be FAXED BACK to us at [phone] for Medicare purposes. For Medicare only, by signing this I certify the plan of care. Please let me know if there are questions or concerns regarding this plan of care. Physician Signature: Date:
--- NOTE | 2022-09-07 10:29 | HP.PTREVAL_ITS ---
Dr. Timo Agudelo MD, It has been my pleasure to treat HARPAL CHERY over the last 19 visits for R knee s/p arthro medial meniscectomy 06/16/22. Please see the progress note below for an update on the physical therapy plan of care! Subjective: Has had 1/10 medial knee soreness throughout time since surgery. Has been sick and unable to be overly consistent with PT but has continued to struggle with higher level activities like jogging after son without flaring up. Jogging one minute last time made his pain increase considerably. i cannot run. Saw doctor yesterday adn will put in for cortisone injections and more therapy. Pain intermittent since last session up to 12/28 over weekend after jogging. Could not stand to play with family. Constant pain is 5/10 medial knee. Sleep is tossing and turning this week. Gets home activities done but they hurt this week. Objective/Function: has tolerated mild agililty and under body weight plyo without soreness but jogging continues to be a problem, even 2x30 seconds of jogging from last time. AROM:0-118 on L which is better than R and not overly painful. has some l antalgia gently today. Steps slightly weak L but able reciprocally without rail up and down. Pt presents weel but cannot do upper level activities which may be bnecessary for his job without severe pain. Pt will have this addressed by doctor possibly with injection and more therapy and we can try progressing upper level activities once that is done. Plan Plan: Pt to do HEp of strength to otlerance, ideally get in gym but likely will not. Will get more approval and have injections, Once that is done i recommend 2x/week x4 therapy as patient will continue strength on his own and we will progress agility , plyo and jogging as able. Previous goals will be appropriate as pain comes down for next 4 weeks with questionable prognosis depending on other interventions. Balance/Gait/Functional tests - Balance/Special Test Scores Functional Gait Assessment Score: 29 % Disability: 3.3400 Lower Extremity Functional Score: 33 Goals Goal 1:: 0-120 aROM without pain R knee Goal Time Frame: 2-4 Weeks Goal Progress: Goal Met Goal 2:: sleep without interruption through the night. Goal Time Frame: 2-4 Weeks Goal Progress: inconsistently Goal 3:: patient 100% better outside of work Goal Time Frame: 2-4 Weeks Goal Progress: Not Progressing Goal 4:: Plan to return to all work duties Goal Time Frame: 6-8 Weeks Goal Progress: unable upper level. Goal 5:: I in appropriate strength and fitness ex for healthy RTW Goal Time Frame: 6-8 Weeks Goal Progress: strength met, not fitness Goal 6:: 64/80 LEFS Goal Time Frame: 6-8 Weeks Goal Progress: Not Progressing Anticipated Interventions Patient/Client Instruction: Educate patient on: Condition, Plan of Care For the Purpose of:: To decrease pain, To increase ROM, To improve muscle performance and motor function, To increase tolerance to activity/condition/position, To improve ability of physical actions for home/community/work/leisure Therapeutic Exercise to Include: Strength training, Flexibilty training, Gait and locomotor training, Passive ROM, Active ROM For the Purpose of:: To decrease pain, To increase ROM, To improve muscle performance and motor function, To increase tolerance to activity/condition/position, To improve ability of physical actions for home/community/work/leisure Manual Therapy Techniques to Include: Mobilization, Passive ROM, Soft tissue mobilization For the Purpose of:: To decrease pain, To increase ROM, To improve nutrient de livery to tissue, To improve muscle performance and motor function, To increase tolerance to activity/condition/position, To improve ability of physical actions for home/community/work/leisure TENS: Yes Cryotherapy (ice pack, ice massage): Yes Vasopneumatic device: Yes For the Purpose of:: To decrease pain, To increase ROM, To improve nutrient delivery to tissue Please do not hesitate to contact me at [phone] by phone or if you have questions or concerns regarding this new plan of care! Sincerely, Uriel Coyne, DPT, OCS, CSCS
--- NOTE | 2022-09-28 10:34 | HP.PTREVAL ---
Dr. Timo Agudelo MD, It has been my pleasure to treat HARPAL CHERY over the last 20 visits for R knee s/p arthro medial meniscectomy 06/16/22. Please see the progress note below for an update on the physical therapy plan of care! Subjective: I sustained a couple injuries since last session. [place];; and landed on R elbow adn went to ER. No broken bones, just bruising. After that, pivotting at changing table and stubbed big toe and ripped toenail off half way. Couldn't wear shoes for a while. Got cortisone shot in knee on September 18 and has been feeling the best he has felt since surgery. No exercise in last 3 weeks but has been active with ladders and feed bags. Got a little pain last night but that is unusual since shot. No. RTW date but will see [facility] doctor tomorrow. Objective/Function: 0-120 AROM R knee today with just mild tightness in quad B. Pt felt great with exercises and no pain, walking normal. taking it easy since patient has not done any ex in 3 weeks but should progress quickly per POC. goals including new goal appropriate. fair prognosis with injection helping. Plan Plan: 3x/week for 2-4 weeks for. 1. Give list again and let do machines I(assuming tolerated well today. 2. get back to funcitonal strength nexct sessiona dn to I. 3. then plyo and agility progresson and jogging as tolerated. No pain allowed. ice as needed. Balance/Gait/Functional tests - Balance/Special Test Scores Functional Gait Assessment Score: 29 % Disability: 3.3400 Lower Extremity Functional Score: 33 Goals Goal 1:: 0-120 aROM without pain R knee Goal Time Frame: 2-4 Weeks Goal Progress: Goal Met Goal 2:: sleep without interruption through the night. Goal Time Frame: 2-4 Weeks Goal Progress: Goal Met Goal 3:: patient 100% better outside of work Goal Time Frame: 2-4 Weeks Goal Progress: approp again. Goal 4:: Plan to return to all work duties Goal Time Frame: 6-8 Weeks Goal Progress: approp again Goal 5:: jog without pain 5 minutes. Goal Time Frame: 2-4 Weeks Goal Progress: NEW GOAL Goal 6:: 64/80 LEFS Goal Time Frame: 6-8 Weeks Goal Progress: Not Progressing Anticipated Interventions Patient/Client Instruction: Educate patient on: Condition, Plan of Care For the Purpose of:: To decrease pain, To increase ROM, To improve muscle performance and motor function, To increase tolerance to activity/condition/position, To improve ability of physical actions for home/community/work/leisure Therapeutic Exercise to Include: Strength training, Flexibilty training, Gait and locomotor training, Passive ROM, Active ROM For the Purpose of:: To decrease pain, To increase ROM, To improve muscle performance and motor function, To increase tolerance to activity/condition/position, To improve ability of physical actions for home/community/work/leisure Manual Therapy Techniques to Include: Mobilization, Passive ROM, Soft tissue mobilization For the Purpose of:: To decrease pain, To increase ROM, To improve nutrient delivery to tissue, To improve muscle performance and motor function, To increase tolerance to activity/condition/position, To improve ability of physical actions for home/community/work/leisure TENS: Yes Cryotherapy (ice pack, ice massage): Yes Vasopneumatic device: Yes For the Purpose of:: To decrease pain, To increase ROM, To improve nutrient delivery to tissue Please do not hesitate to contact me at [phone] by phone or if you have questions or concerns regarding this new plan of care! Sincerely, Uriel Coyne, DPT, OCS, CSCS
--- NOTE | 2022-10-13 09:28 | HP.PTREVAL ---
Dr. Timo Agudelo MD, It has been my pleasure to treat HARPAL CHERY over the last 25 visits for R knee s/p arthro medial meniscectomy 06/16/22. Please see the progress note below for an update on the physical therapy plan of care! Subjective: Tolerated last workout OK. iced knee yesterday. Sore and swollen yesterday, not sure why 06/30.Took ibuprofen. Usually better after workout. Gym adn functional going Ok and will continue over the next two weeks. then to doctor. wants full release to work. Objective/Function: 0-122 aROM. Walking well. Steps two at a time without increased pain. Jogging without deficits 4.1 mph 5 minutes without a problem today. Wanting full release and probably could tolerate although he is a month or so behind due to bad pain he had prior to injection. Plan [facility], call if problems and f/u doc in two weeks. Will call after that to return or d/c Balance/Gait/Functional tests - Balance/Special Test Scores Functional Gait Assessment Score: 29 % Disability: 3.3400 Lower Extremity Functional Score: 60 Goals Goal 1:: 0-120 aROM without pain R knee Goal Time Frame: 2-4 Weeks Goal Progress: Goal Met Goal 2:: sleep without interruption through the night. Goal Time Frame: 2-4 Weeks Goal Progress: Goal Met Goal 3:: patient 100% better outside of work Goal Time Frame: 2-4 Weeks Goal Progress: Progressing Goal 4:: Plan to return to all work duties Goal Time Frame: 6-8 Weeks Goal Progress: wants to Goal 5:: jog without pain 5 minutes. Goal Time Frame: 2-4 Weeks Goal Progress: Goal Met no increase pain Goal 6:: 64/80 LEFS Goal Time Frame: 6-8 Weeks Goal Progress: Progressing Anticipated Interventions Patient/Client Instruction: Educate patient on: Condition, Plan of Care For the Purpose of:: To decrease pain, To increase ROM, To improve muscle performance and motor function, To increase tolerance to activity/condition/position, To improve ability of physical actions for home/community/work/leisure Therapeutic Exercise to Include: Strength training, Flexibilty training, Gait and locomotor training, Passive ROM, Active ROM For the Purpose of:: To decrease pain, To increase ROM, To improve muscle performance and motor function, To increase tolerance to activity/condition/position, To improve ability of physical actions for home/community/work/leisure Manual Therapy Techniques to Include: Mobilization, Passive ROM, Soft tissue mobilization For the Purpose of:: To decrease pain, To increase ROM, To improve nutrient delivery to tissue, To improve muscle performance and motor function, To increase tolerance to activity/condition/position, To improve ability of physical actions for home/community/work/leisure TENS: Yes Cryotherapy (ice pack, ice massage): Yes Vasopneumatic device: Yes For the Purpose of:: To decrease pain, To increase ROM, To improve nutrient delivery to tissue Please do not hesitate to contact me at [phone] by phone or if you have questions or concerns regarding this new plan of care! Sincerely, Uriel Coyne, DPT, OCS, CSCS
--- NOTE | 2022-11-27 14:00 | HP.PT.NRP ---
Patient Information Patient Information: HARPAL CHERY was seen in my office for initial evaluation on 06/27/22. The following Plan of Care was established for this patient: POC Established Initial Frequency: 3x /Week Initial Duration: 2 Months Anticipated Interventions Patient/Client Instruction: Educate patient on: Condition and Plan of Care For the Purpose of:: To decrease pain, To increase ROM, To improve muscle performance and motor function, To increase tolerance to activity/condition/position and To improve ability of physical actions for home/community/work/leisure Therapeutic Exercise to Include: Strength training, Flexibilty training, Gait and locomotor training, Passive ROM and Active ROM For the Purpose of:: To decrease pain, To increase ROM, To improve muscle performance and motor function, To increase tolerance to activity/condition/position and To improve ability of physical actions for home/community/work/leisure Manual Therapy Techniques to Include: Mobilization, Passive ROM and Soft tissue mobilization For the Purpose of:: To decrease pain, To increase ROM, To improve nutrient delivery to tissue, To improve muscle performance and motor function, To increase tolerance to activity/condition/position and To improve ability of physical actions for home/community/work/leisure TENS: Yes Cryotherapy (ice pack, ice massage): Yes Vasopneumatic device: Yes For the Purpose of:: To decrease pain, To increase ROM and To improve nutrient delivery to tissue Last Seen Last Seen: This patient was last seen in our office 10/13/22. Pertinent comments regarding their Physical therapy will appear below: Pt seen 25 visits and was 75% better overall. Was up and down with knee pain but recovering well after injection at last visit and wanting to be released to work. he was to f/u with doctor and call if he needed to return to therapy. at this point, it has been over 6 weeks and I will discontinue from my care. At this point I will be discontinuing this patient from physical therapy. I would be happy to see this patient again in the future if found appropriate by the physician. Thank you! Uriel Coyne, DPT, OCS, CSCS Balance/Gait/Functional tests Balance/Special Test Scores Functional Gait Assessment Score: 29 % Disability: 3.3400 Lower Extremity Functional Score: 60
== END 2022-10-13 19:00 | disposition home or self-care (01) ==
LOC: PT 09:00
PROVIDERS: Referring Provider Orthopaedic Surgery; Visit Provider Orthopaedic Surgery
DX: S89.91XD Unspecified injury of right lower leg, subsequent encounter (principal); S83.241D Other tear of medial meniscus, current injury, right knee, subsequent encounter
CPT/HCPCS: 97110; 97140; 97161; 97164; 97530

== ENCOUNTER → 2024-01-10 | Outpatient (CLI) | payer OTHER, SELFPAY ==
--- NOTE | 2024-01-10 18:04 | RAD_ITS ---
STUDY: X-RAY - LEFT WRIST REASON FOR EXAM: Male, 48 years old. PAIN TECHNIQUE: 3 view(s) of the wrist were obtained. COMPARISON: None. FINDINGS: The patient is status post open reduction and internal fixation of a distal radial fracture. There is degenerative arthrosis of the radiocarpal articulation. Normal distal radioulnar articulation. Normal carpal bones. Normal carpal articulations. Normal carpometacarpal articulation of the thumb. Normal second through fifth carpometacarpal articulations. Normal visualized metacarpal bones. The soft tissue structures are unremarkable. RAD/Wrist min 3 Views IMPRESSION: Status post open reduction internal fixation of the distal radial fracture. No acute abnormality is seen. There is evidence of degenerative arthrosis of the radiocarpal joint. Electronically Signed: Craig Logan MD at 14:21 EDT ,
--- NOTE | 2024-01-10 18:04 | RAD_ITS ---
STUDY: X-RAY - LEFT HAND REASON FOR EXAM: Male, 48 years old. PAIN TECHNIQUE: 3 view(s) of the hand. COMPARISON: None. FINDINGS: Normal radiocarpal articulation. Normal distal radioulnar joint. The patient is status post open reduction and internal fixation of the distal radial fracture. Normal visualized carpal bones. Normal carpal articulations Normal carpometacarpal articulation of the thumb. Normal second through fifth carpometacarpal joints. Normal metacarpi. Normal metacarpophalangeal joint of the thumb. Normal interphalangeal joint of the thumb. Normal proximal and distal phalanges of the thumb. Normal metacarpophalangeal joints of the second through fifth fingers. Normal proximal and distal interphalangeal joints of the second through fifth fingers. Normal phalanges of the second through fifth fingers. Soft tissue swelling. RAD/Hand Min 3 Views IMPRESSION: Soft tissue swelling. Electronically Signed: Craig Logan MD at 14:20 EDT ,
== END | disposition home or self-care (01) ==
LOC: RAD 18:00
PROVIDERS: Referring Provider Emergency Medicine; Visit Provider Emergency Medicine
DX: S63.502A Unspecified sprain of left wrist, initial encounter (principal)
CPT/HCPCS: 73110; 73130

== ENCOUNTER → 2024-12-02 | Outpatient (CLI) | payer OTHER, SELFPAY | END | disposition home or self-care (01) | LOC: SL 19:51 | PROVIDERS: Referring Provider Family Medicine; Visit Provider Family Medicine | DX: R40.0 Somnolence (principal) | CPT/HCPCS: 95811 ==

== ENCOUNTER → 2024-12-26 | Outpatient (CLI) | payer OTHER, SELFPAY | END | disposition home or self-care (01) | LOC: SL 14:29 | PROVIDERS: Referring Provider Family Medicine; Visit Provider Family Medicine | DX: Z46.89 Encounter for fitting and adjustment of other specified devices (principal) ==

== ENCOUNTER 2025-05-01 13:46 | Emergency (ER) | payer OTHER, SELFPAY ==
[2025-05-01 13:47] VITALS: BP 126/95; PULSE 81; RESP 18; TEMP 36.7; O2SAT 96; BMI 37.6
[2025-05-01 13:55] VITALS: BP 143/99; PULSE 79; RESP 18; TEMP 36.7; O2SAT 95
--- NOTE | 2025-05-01 14:38 | RAD_ITS ---
PROCEDURE: CHEST PA AND LATERAL 05/01/2025 REASON FOR EXAM: COUGH, CHEST TIGHTNESS, WHEEZING TECHNIQUE: Procedure Code: RADCXR Modality: DX Procedure: CHEST PA AND LATERAL COMPARISON: None FINDINGS: Support/devices:None. Heart:Normal in size. Mediastinum: Unremarkable Lungs: Clear. No consolidation. No mass. Pleura: No pneumothorax. No pleural effusion. Osseous structures: No fracture. Soft tissues: No soft tissue abnormality. RAD/Chest PA and Lateral IMPRESSION: No acute cardiopulmonary process. Reading Location: [facility]
--- NOTE | 2025-05-01 14:38 | EKG12_ITS ---
Test Reason : CP Blood Pressure : */* mmHG Vent. Rate : 75 BPM Atrial Rate : 75 BPM P-R Int : 136 ms QRS Dur : 78 ms QT Int : 354 ms P-R-T Axes : 37 -26 13 degrees QTcB Int : 395 ms Normal sinus rhythm Normal ECG Confirmed by ISI HANSON, BRIT ([id number]), editorial assistant DEION SNOW ([id number]) on 05/04/2025 6:47:49 AM Referred By: ENEDINA/GUEVARA Confirmed By: BRIT SNOWDEN MD
--- NOTE | 2025-05-01 14:39 | EDS_ITS ---
HPI History of Present Illness Chief Complaint: Chest Pain Informant: patient Narrative Narrative: Patient is a 50-year-old male presenting with persistent chest congestion, cough, wheezing, and chest tightness for the past 3-4 weeks. - Reports a chest cold for the past 3-4 weeks with no improvement. - Has visited [facility] multiple times; prescribed multiple courses of prednisone without relief. - Has mild asthma as a child, but has not had issues since then. - Unable to see his PCP. - Associated symptoms include chest congestion, cough, wheezing, and chest tightness. - Initially had fevers, but they have resolved. - Denies orthopnea, PND, GI symptoms, leg edema, or known sick contacts. - Underwent a chest X-ray, which suggested possible pneumonia; completed a course of Augmentin 2 weeks ago with no improvement. - Currently on his third week of prednisone, tapering at 30 mg/day. [facility] Medical History (Updated 05/01/25 @ 15:[address] Kings Napoles MD) Migraines Hypertension Home Medications ?Medication ?Instructions ?Recorded ?Last Taken ?Type naproxen 500 mg tablet 500 mg PO BID PRN #20 tabs 1 06/21/21 Unknown Rx sumatriptan succinate 50 mg tablet 50 mg PO PRN PRN Mi graine Headache 04/20/22 Unknown History codeine 10 mg-guaifenesin 100 mg/5 See Rx Instructions PO Q6H PRN 10/12/23 Unknown Rx mL oral liquid cough #120 mL CPAP - Continuous Positive Airway 02/13/25 Unknown Hi story Pressure([facility] INFORMATIONAL USE ONLY) azithromycin 250 mg tablet See Rx Instructions PO .COM PLEX #6 05/01/25 Unknown Rx tabs prednisone 10 mg tablet mg PO 05/01/25 Unknown Histo ry Allergy/AdvReac Type Severity Reaction Status Date / Time No Known Allergies Allergy Verified 05/01/25 13:47 Surgical History Status post wrist surgery History of eyelid surgery History of knee surgery Social History Smoking Status: Never smoker alcohol intake: never substance use type: does not use ROS ROS ED Constitutional Constitutional ED: Denies chills or fever(s) Eyes Eyes: Denies change in vision or diplopia ENT ENT ED: Denies rhinorrhea or sore throat Cardiovascular Cardiovascular: Denies leg edema, orthopnea, palpitations, paroxysmal nocturnal dyspnea, radiating jaw, neck or arm pain or syncope Respiratory/Chest Respiratory/Chest: Reports chest congestion, chest tightness, cough, dyspnea, dyspnea on exertion and sputum; Denies orthopnea or paroxysmal nocturnal dyspnea Gastrointestinal Gastrointestinal: Denies abdominal pain, diarrhea, nausea or vomiting Genitourinary Genitourinary ED: Denies dysuria or hematuria Musculoskeletal Musculoskeletal: Denies back pain or neck pain Integumentary Denies abscess or rash Neurologic Neurologic: Denies headache(s), paresthesias or weakness Psychiatric Psychiatric: Denies suicidal thoughts EXAM Physical Exam Const Vital Signs: 05/01/25 13:47 05/01/25 13:55 05/01/25 13:55 Temperature 98.1 F 98.0 F Temperature Source Oral Oral Pulse Rate 81 79 Respiratory Rate 18 18 Respiratory Effort Normal Respiratory Depth Respiratory Pattern Blood Pressure 126/95 H 143/99 H Blood Pressure Mean 105 113 Pulse Ox 96 95 Oxygen Delivery Method Room Air Room Air 05/01/25 13:55 05/01/25 14:44 05/01/25 14:47 Temperature Temperature Source Pulse Rate 85 66 Respiratory Rate 16 13 Respiratory Effort Normal Respiratory Depth Normal Respiratory Pattern Normal Blood Pressure 130/77 H Blood Pressure Mean 94 Pulse Ox 98 Oxygen Delivery Method Room Air 05/01/25 14:55 Temperature 98.7 F Temperature Source Oral Pulse Rate 75 Respiratory Rate 17 Respiratory Effort Respiratory Depth Respiratory Pattern Blood Pressure 130/77 H Blood Pressure Mean 94 Pulse Ox 96 Oxygen Delivery Method Room Air Positive well nourished and well developed General Appearance ED: well developed and NAD HEENT Reports moist mucous membranes HEENT Narrative: Often bronchitic cough normocephalic and atraumatic Eyes PERRL and EOMs intact bilaterally Neck full ROM and supple Resp normal respiratory effort Resp Narrative: Diffuse expiratory wheezes no rales or rhonchi equal breath sounds bilaterally trachea midline Cardio regular rate, regular rhythm and no murmurs GI non-tender and non-distended Auscultation: normoactive bowel sounds Palpation: soft Back/Spine no CVA tenderness General Back: other FROM Extremity normal to inspection General Extremety ED: Negative for edema, pulses abnormal or tenderness General Extremity: Negative for edema or pulses abnormal Neuro oriented x3, CN's II-XII intact bilaterally and no sensory deficits noted Sensorium / Orientation: awake and alert Motor Exam: strength 5/5 throughout Psych mental status grossly normal Skin no rashes or lesions noted and no wounds MDM MDM MDM Narrative Medical decision making narrative: Assessment: The patient is a 50-year-old male with PMH of mild childhood asthma presenting for 3?4 weeks of chest congestion, cough, wheezing, and intermittent chest tightness unresponsive to three courses of prednisone and a completed course of Augmentin. Initial fevers have resolved. Normal EKG and 2-view chest X-ray without infiltrate make acute cardiac etiology and bacterial pneumonia unlikely. Given persistent wheezing and symptomatic improvement after nebulizer, acute wheezy bronchitis is most likely; atypical ?walking? pneumonia remains possible, warranting empiric macrolide therapy. Plan: - Administered nebulizer treatment in ED; patient reports symptomatic improvement - Prescribed macrolide antibiotic for possible atypical pneumonia - Advised continued use of inhaler for symptomatic relief - Instructed patient to taper off prednisone as soon as safely possible - Discharged home with return precautions and instructions to follow up with primary care if no improvement or worsening symptoms Diagnostics: - EKG interpreted: normal sinus rhythm, no acute ischemic changes. Independently interpreted by Kings chang. - 2-view chest X-ray: clear lung hall, no pneumonia. Independently interpreted by Kings chang. Reevaluations: - Patient reports feeling better after nebulizer treatment; wheeze decreased on auscultation Portions of this note were generated using voice recognition software ([email or web address] Dict[employer]). I have reviewed the contents and every effort has been made to ensure accuracy; however, inadvertent errors in grammar, spelling, punctuation, or word choice may occur, that were not noted before signing the document and should not alter the intended clinical meaning. Radiography Diagnostic Testing: Clinical Impression(s) from Imaging Studies Chest X-Ray 05/01/25 14:38 IMPRESSION: No acute cardiopulmonary process. Reading Location: [facility] Discharge Plan Triage Chief Complaint: Chest Pain Other Complaint: Shortness of Breath ED Provider: Kings Napoles Dx/Rx/DC Orders Clinical Impression: Acute wheezy bronchitis, Chest congestion, Chest tightness Instructions: ED Bronchitis with Wheezing (Adult) Prescriptions: New azithromycin 250 mg tablet See Rx Instructions PO .COMPLEX Qty: 6 0RF Rx Instructions: For 250 mg dose pack: take 500 mg today (day 1), then 250 mg for 4 days (days 2-5) No Action codeine-guaifenesin 10-100 mg/5 mL liquid See Rx Instructions PO Q6H PRN (Reason: cough) Qty: 120 0RF Rx Instructions: 5ml-10ml orally every 6 hours PRN; sumatriptan succinate 50 mg tablet 50 mg PO PRN PRN (Reason: Migraine Headache) Patient Comments: Take 1 tablet by mouth asCneeded for migraine headache (see administration instructions). naproxen 500 mg tablet 500 mg PO BID PRN Qty: 20 0RF prednisone 10 mg tablet PO (DME) CPAP - Continuous Positive Airway Pressure([facility] INFORMATIONAL USE ONLY) See Rx Instructions .ROUTE .MEDSUPPLY Rx Instructions: CPAP 15 DME- DASCO MASK- MEDIUM RESMED F40 FFM Primary Care Provider: Marlon Badillo Referrals: Marlon Badillo MD [Primary Care Provider, Family Practice] - 1 Week if not improving Activity Restrictions/Additional Instructions: - Begin the prescribed macrolide antibiotic for possible ?walking? pneumonia and take it exactly as directed. - Continue tapering off prednisone and stop it as soon as it is safely possible --you may hasten the taper by taking 30 mg a day for 3 days, then 20 mg a day for 3 days, then 10 mg a day for 3 days and then stopping. - Use your inhaler for wheezing as needed (2-3 inhaled puffs up to every 2-3 hrs) to help open your airways. Print Language: Syriac Disposition Disposition: Home, Self Care
[2025-05-01 14:44] VITALS: PULSE 85; RESP 16
[2025-05-01 14:47] VITALS: BP 130/77; PULSE 66; RESP 13; O2SAT 98
[2025-05-01 14:55] VITALS: BP 130/77; PULSE 75; RESP 17; TEMP 37.1; O2SAT 96
[2025-05-01 16:08] VITALS: BP 124/80; PULSE 83; RESP 18; TEMP 36.8; O2SAT 95
== END 2025-05-01 16:11 | disposition home or self-care (01) ==
PROVIDERS: Emergency Provider Emergency Medicine; PCP Family Medicine; Visit Provider Emergency Medicine
DX: J20.9 Acute bronchitis, unspecified (principal); J45.909 Unspecified asthma, uncomplicated; R07.89 Other chest pain; I10 Essential (primary) hypertension
CPT/HCPCS: 71046; 93005; 94640; 99283; A4216